=== PATIENT | female | born 1960 | race Two or more races ===

== ENCOUNTER 2017-03-08 11:40 | Emergency (ER) | payer MEDICAID ==
[~2017-03-08] VITALS: Ht 157.5 cm; Wt 90.3 kg
[~2017-03-08 11:40] MED LIST: CANA100T OR; GLIP-116 PO; METO25TA62 PO; OMEP20CA5 OR
[2017-03-08 11:58] VITALS: BP 169/80
[2017-03-08] MEDS ORDERED: KETOROLAC TROMETH 60MG/2ML VIAL IM ONE (13:00)
[2017-03-08] MEDS ORDERED: cefTRIAXone SOD 1,000 MG VL IM ONE (13:00)
== END 2017-03-08 13:27 | disposition home or self-care (01) ==
LOC: ER 11:41
DX: N39.0 Urinary tract infection, site not specified (principal); N12 Tubulo-interstitial nephritis, not specified as acute or chronic; E11.9 Type 2 diabetes mellitus without complications; I10 Essential (primary) hypertension; Z91.018 Allergy to other foods
CPT/HCPCS: 81002; 96372; 99284; J0696; J1885

== ENCOUNTER 2018-01-21 15:05 | Emergency (ER) | payer MEDICAID ==
[~2018-01-21] VITALS: Ht 157.5 cm; Wt 86.2 kg
[~2018-01-21 15:05] MED LIST changes: -OMEP20CA5 OR; +OMEP20CA74 OR
[2018-01-21 15:59] LABS: Basophils # (auto) 0 uL; Basophils % (auto) 0.4 % (0.0-2.0); Eosinophils # (auto) 0.2 uL; Eosinophils % (auto) 2.2 % (0.0-7.0); Hematocrit 47.2 % (36.0-46.0); Hemoglobin 16.6 g/dL (12.2-16.2); Lymphocytes # (auto) 1.1 uL; Lymphocytes % (auto) 15.1 % (10.0-50.0); Mean Corpuscular Hemoglobin 31.8 pg (28.0-32.0); Mean Corpuscular Hgb Conc. 35.1 g/dL (32.0-36.0); Mean Corpuscular Volume 90.6 fL (80.0-100.0); Monocytes # (auto) 0.4 uL; Monocytes % (auto) 5.1 % (0.0-12.0); Neutrophils # (auto) 5.7 uL; Neutrophils % (auto) 77.2 % (37.0-80.0); Nucleated Red Blood Cells % 0.2 %; Red Blood Cells 5.21 10^6/uL (4.0-5.20); Red Cell Distribution Width 13.6 % (11.8-14.3); White Blood Cell 7.4 10^3/uL (4.4-10.8)
[2018-01-21 16:01] LABS: INR 1.1 (0.9-1.15)
[2018-01-21 16:06] LABS: Alanine Aminotransferase 56 U/L (13-56); Albumin 3.8 g/dL (3.4-5.0); Alkaline Phosphatase 92 U/L (45-117); Anion Gap 8 (5-15); Aspartate Aminotransferase 43 U/L (15-37); Bilirubin, Total 0.6 mg/dL (0.2-1.0); Blood Urea Nitrogen 18 mg/dL (7-18); Calcium 9.1 mg/dL (8.5-10.1); Carbon Dioxide 32 mmol/L (21-32); Chloride 97 mmol/L (98-107); GFR African American 102 mL/min; GFR Non-African American 85 mL/min; Glucose 87 mg/dL (74-106); Magnesium 2.5 mg/dL (1.6-2.6); Potassium 3.4 mmol/L (3.5-5.1); Sodium 137 mmol/L (136-145); Total Protein 9.4 g/dL (6.4-8.2)
[2018-01-21 16:16] LABS: Platelet Count (auto) 139 10^3/uL (140-450)
[2018-01-21] MEDS ORDERED: PANTOPRAZOLE 40 MG/10 ML VIAL IV ONE (19:15)
[2018-01-21] MEDS ORDERED: ONDANSETRON HCL 4 MG/2 ML VIAL IV ONE (20:15)
[2018-01-21] MEDS ORDERED: MORPHINE SULFATE 4 MG/ML SYR/VIAL IV ONE (20:15)
[2018-01-21 20:32] LABS: Urine Bacteria NONE SEEN /hpf (None Seen); Urine Blood Negative /uL (Negative); Urine WBC 4 /hpf (0 - 5)
[2018-01-21 20:59] VITALS: BP 127/80
== END 2018-01-21 21:01 | disposition home or self-care (01) ==
LOC: ER 15:05 → EDBD 15:05 → EDUNIT# 15:05 → ER 21:01
DX: R07.89 Other chest pain (principal); I10 Essential (primary) hypertension; E11.9 Type 2 diabetes mellitus without complications; E78.5 Hyperlipidemia, unspecified; Z79.84 Long term (current) use of oral hypoglycemic drugs; Z86.73 Personal history of transient ischemic attack (TIA), and cerebral infarction without residual deficits; Z98.51 Tubal ligation status
CPT/HCPCS: 36415; 71046; 80053; 81001; 83735; 84484; 85025; 85379; 85610; 85730; 94761; 96374; 96375; 99285; C9113; J2270; J2405; 93005

== ENCOUNTER 2019-08-27 16:36 | Emergency (ER) | payer MEDICAID ==
[~2019-08-27] VITALS: Ht 157.5 cm; Wt 88.5 kg
[~2019-08-27 16:36] MED LIST changes: -GLIP-116 PO; +GLIP10TA9 PO
[2019-08-27 17:28] LABS: Basophils # (auto) 0.1 uL; Eosinophils # (auto) 0.1 uL; Eosinophils % (auto) 1.1 % (0.0-7.0); Hematocrit 44.9 % (36.0-46.0); Hemoglobin 15.7 g/dL (12.2-16.2); Lymphocytes # (auto) 1.2 uL; Lymphocytes % (auto) 20.7 % (10.0-50.0); Mean Corpuscular Hemoglobin 30.6 pg (28.0-32.0); Mean Corpuscular Hgb Conc. 34.9 g/dL (32.0-36.0); Mean Corpuscular Volume 87.5 fL (80.0-100.0); Monocytes # (auto) 0.3 uL; Monocytes % (auto) 4.8 % (0.0-12.0); Neutrophils # (auto) 4.2 uL; Neutrophils % (auto) 72.4 % (37.0-80.0); Nucleated Red Blood Cells % 0.1 %; Platelet Count (auto) 140 10^3/uL (140-450); Red Blood Cells 5.13 10^6/uL (4.0-5.20); Red Cell Distribution Width 13.9 % (11.8-14.3); White Blood Cell 5.8 10^3/uL (4.4-10.8)
[2019-08-27 17:38] LABS: Albumin 3.6 g/dL (3.4-5.0); Anion Gap 7 (5-15); BUN/Creatinine Ratio 22.4; Blood Urea Nitrogen 17 mg/dL (7-18); Carbon Dioxide 30 mmol/L (21-32); Chloride 102 mmol/L (98-107); GFR African American 100 mL/min; GFR Non-African American 83 mL/min; Glucose 96 mg/dL (74-106); Potassium 4.4 mmol/L (3.5-5.1); Sodium 139 mmol/L (136-145)
[2019-08-27 17:43] LABS: Alanine Aminotransferase 59 U/L (13-56); Alkaline Phosphatase 98 U/L (45-117); Aspartate Aminotransferase 52 U/L (15-37); Bilirubin, Total 0.9 mg/dL (0.2-1.0); Total Protein 9.2 g/dL (6.4-8.2)
[2019-08-27 20:31] LABS: INR 1.02 (0.9-1.15); Partial Thromboplastin Time 27.9 sec (23.64-32.05)
[2019-08-27] MEDS ORDERED: TIMO0.5S32 EACHEYE (21:37)
[2019-08-27] MEDS ORDERED: IOHEXOL 300 MG/ML 100ML BOTTLE IJ ONE (21:37)
[2019-08-27] MEDS ORDERED: ERTU15TA PO (21:37)
[2019-08-27] MEDS ORDERED: TRAM50TA2 PO (21:37)
[2019-08-27] MEDS ORDERED: LIRA18IN2 INJ (21:37)
[2019-08-27] MEDS ORDERED: LATA0.0015 EACHEYE (21:37)
[2019-08-27] MEDS ORDERED: TRIATAB3 PO (21:37)
[2019-08-27] MEDS ORDERED: PANT40T PO (21:37)
[2019-08-27] MEDS ORDERED: ONDANSETRON HCL 4 MG/2 ML VIAL IV ONE (21:45)
[2019-08-27] MEDS ORDERED: MORPHINE SULFATE 4 MG/ML SYR/VIAL IV ONE (22:30)
[2019-08-27 23:59] VITALS: BP 110/50
== END 2019-08-28 01:14 | disposition home or self-care (01) ==
LOC: ER 16:36
DX: K74.60 Unspecified cirrhosis of liver (principal); E11.9 Type 2 diabetes mellitus without complications; E78.00 Pure hypercholesterolemia, unspecified; I10 Essential (primary) hypertension; Z86.73 Personal history of transient ischemic attack (TIA), and cerebral infarction without residual deficits
CPT/HCPCS: 36415; 70450; 74177; 80053; 80320; 82140; 84484; 85025; 85610; 85730; 93005; 96374; 96375; 99284; J2270; J2405; Q9967

== ENCOUNTER 2021-01-20 18:27 | Inpatient (IN) | payer MEDICAID ==
[~2021-01-20] VITALS: Ht 157.5 cm; Wt 87.5 kg
[~2021-01-20 18:27] MED LIST changes: +ASPI-394 PO; +ATOR80TA PO; -CANA100T OR; -GLIP10TA9 PO; +INSLANTI SC; +LACT10SO3 PO; +LATA0.0019 EACHEYE; +LISI2.5T47 PO; +METO25TA5 PO; -METO25TA62 PO; -OMEP20CA74 OR; +PANT40T PO; +TIMO0.5S32 EACHEYE; +TRAM50TA2 PO; +TRIATAB3 PO
[2021-01-20] MEDS ORDERED: methylPREDNISolone SOD SUCC 125 MG/2 ML VL IV ONE (19:00)
[2021-01-20 19:30] LABS: Basophils # (auto) 0 10 ^3/uL (0-0.2); Basophils % (auto) 0.2 % (0.0-2.0); Eosinophils # (auto) 0 10 ^3/uL (0-0.8); Hemoglobin 15.3 g/dL (12.2-16.2); Lymphocytes # (auto) 0.5 10 ^3/uL (0.4-5.4); Lymphocytes % (auto) 6.6 % (10.0-50.0); Mean Corpuscular Hemoglobin 31.7 pg (28.0-32.0); Mean Corpuscular Hgb Conc. 35.6 g/dL (32.0-36.0); Mean Corpuscular Volume 88.9 fL (80.0-100.0); Monocytes # (auto) 0.7 10 ^3/uL (0-1.3); Neutrophils # (auto) 6.8 10 ^3/uL (1.6-8.6); Neutrophils % (auto) 84.2 % (37.0-80.0); Platelet Count (auto) 110 10^3/uL (140-450); Red Blood Cells 4.84 10^6/uL (4.0-5.20); Red Cell Distribution Width 13.5 % (11.8-14.3)
[2021-01-20 19:44] LABS: Albumin 3.3 g/dL (3.4-5.0); Calcium 8.9 mg/dL (8.5-10.1); Magnesium 2.6 mg/dL (1.6-2.6); Potassium 3.4 mmol/L (3.5-5.1)
[2021-01-20] MEDS ORDERED: ACETAMINOPHEN 325 MG TAB PO ONE (19:45)
[2021-01-20 19:52] LABS: BUN/Creatinine Ratio 15.5; Bilirubin, Total 1.7 mg/dL (0.2-1.0); CRP High Sensitivity 9.5 mg/dL (< 0.3); Total Protein 8.9 g/dL (6.4-8.2)
[2021-01-20 21:14] LABS: Urine Bacteria NONE SEEN /hpf (None Seen); Urine Blood 1+ /uL (Negative); Urine Budding Yeast MODERATE /hpf (None Seen); Urine Mucus FEW (None Seen); Urine Specific Gravity 1.025 (1.001-1.035); Urine WBC 239 /hpf (0 - 5)
[2021-01-20] MEDS ORDERED: SODIUM CHLORIDE 0.9% 1,000 ML IV ONE (21:45)
[2021-01-20] MEDS ORDERED: ONDANSETRON HCL 4 MG/2 ML VIAL IV PRN (21:45)
[2021-01-21] MEDS ORDERED: ONDANSETRON HCL 4 MG/2 ML VIAL IV PRN (05:45)
[2021-01-21] MEDS ORDERED: MORPHINE SULF INJ 2 MG/ML SYRINGE 1ML IV PRN ×2 (05:45)
[2021-01-21] MEDS ORDERED: NITROGLYCERIN 0.4 MG SL TAB SL PRN (05:45)
[2021-01-21] MEDS ORDERED: HYDROcodone-ACET 5/325MG TAB PO PRN (05:45)
[2021-01-21] MEDS ORDERED: AZITHROMYCIN 500MG/ 250ML 250 ML IV SCH (06:00)
[2021-01-21] MEDS: ALBUTEROL SULF 2.5 MG/0.5ML(0.5%) NEB SOLN NEB SCH ×4 (08:45→18:59)
[2021-01-21] MEDS: IPRATROPIUM BROM 0.5 MG/2.5ML INH SOL NEB SCH ×4 (08:45→18:59)
[2021-01-21 09:00] VITALS: BP 93/52
[2021-01-21] MEDS ORDERED: DexAMETHasone SOD PHOS 10MG/1ML VIAL INJ IV SCH (10:00)
[2021-01-21] MEDS: ENOXAPARIN SOD 40 MG/0.4 ML SYRINGE SC SCH (10:00)
[2021-01-21] MEDS: levoFLOXacin 500MG 100 ML IV SCH (10:17)
[2021-01-21] MEDS ORDERED: DEXTROSE (50%) 50ML SYRG IV PRN (10:45)
[2021-01-21] MEDS: InsuLIN REG 1unit/0.01ml Soln (100units/ml) SC SCH ×3 (11:55→22:36)
[2021-01-21] MEDS: ACCU-CHEK COMFORT CURVE STRIP VI SCH ×3 (11:55→22:00)
[2021-01-21] MEDS ORDERED: traMADol HCL 50 MG TAB PO ONE (13:45)
[2021-01-21] MEDS ORDERED: traMADol HCL 50 MG TAB PO PRN (14:00)
[2021-01-21] MEDS ORDERED: IOHEXOL 350 MG/ML 100ML IJ ONE (15:30)
[2021-01-21 16:49] LABS: INR 1.31 (0.9-1.15); Partial Thromboplastin Time 28.1 sec (23.0-31.2)
[2021-01-21] MEDS: SUCRALFATE 1 GM/10 ML ORAL SUSP PO SCH ×2 (17:00→22:37)
[2021-01-21] MEDS ORDERED: SUCRALFATE 1 GM/10 ML ORAL SUSP ONE (17:57)
[2021-01-21] MEDS: ACETAMINOPHEN 325 MG TAB PO PRN (18:30)
[2021-01-21 20:18] VITALS: BP 101/58
[2021-01-21] MEDS: PANTOPRAZOLE 40 MG TAB PO SCH (22:37)
[2021-01-21] MEDS: METOCLOPRAMIDE HCL 10 MG TAB PO SCH (22:38)
[2021-01-22] MEDS: SUCRALFATE 1 GM/10 ML ORAL SUSP PO SCH ×4 (06:57→22:22)
[2021-01-22] MEDS: ACCU-CHEK COMFORT CURVE STRIP VI SCH ×4 (06:57→22:22)
[2021-01-22] MEDS: InsuLIN REG 1unit/0.01ml Soln (100units/ml) SC SCH ×4 (06:57→22:38)
[2021-01-22] MEDS: IPRATROPIUM BROM 0.5 MG/2.5ML INH SOL NEB SCH ×3 (06:58→19:31)
[2021-01-22] MEDS: ALBUTEROL SULF 2.5 MG/0.5ML(0.5%) NEB SOLN NEB SCH ×3 (06:58→19:31)
[2021-01-22 08:00] VITALS: BP 90/50
[2021-01-22 08:45] LABS: Basophils # (auto) 0 10 ^3/uL (0-0.2); Basophils % (auto) 0.1 % (0.0-2.0); Eosinophils # (auto) 0 10 ^3/uL (0-0.8); Hematocrit 43.4 % (36.0-46.0); Hemoglobin 14.9 g/dL (12.2-16.2); Lymphocytes # (auto) 0.7 10 ^3/uL (0.4-5.4); Lymphocytes % (auto) 6.2 % (10.0-50.0); Mean Corpuscular Hemoglobin 30.8 pg (28.0-32.0); Mean Corpuscular Hgb Conc. 34.4 g/dL (32.0-36.0); Mean Corpuscular Volume 89.7 fL (80.0-100.0); Monocytes # (auto) 0.6 10 ^3/uL (0-1.3); Monocytes % (auto) 5.5 % (0.0-12.0); Neutrophils # (auto) 9.6 10 ^3/uL (1.6-8.6); Neutrophils % (auto) 88.2 % (37.0-80.0); Platelet Count (auto) 121 10^3/uL (140-450); Red Blood Cells 4.84 10^6/uL (4.0-5.20); Red Cell Distribution Width 13.7 % (11.8-14.3); White Blood Cell 10.9 10^3/uL (4.4-10.8)
[2021-01-22 09:04] LABS: Calcium 8.8 mg/dL (8.5-10.1); Potassium 3.8 mmol/L (3.5-5.1)
[2021-01-22 09:06] LABS: BUN/Creatinine Ratio 29.5
[2021-01-22] MEDS ORDERED: MIDAZOLAM HCL 5 MG/ML-1ML VIAL ONE (09:23)
[2021-01-22] MEDS ORDERED: fentaNYL CITRATE 100 MCG/2 ML VL ONE (09:23)
[2021-01-22] MEDS ORDERED: LIDOCAINE VISCOUS 2% 15ML UD ONE (09:23)
[2021-01-22] MEDS ORDERED: diphenhdrAMINE HCL 50 MG/1 ML VL ONE (09:23)
[2021-01-22] MEDS: levoFLOXacin 500MG 100 ML IV SCH (09:27)
[2021-01-22] MEDS: ENOXAPARIN SOD 40 MG/0.4 ML SYRINGE SC SCH (09:27)
[2021-01-22] MEDS: METOCLOPRAMIDE HCL 10 MG TAB PO SCH ×2 (09:27→22:21)
[2021-01-22] MEDS: PANTOPRAZOLE 40 MG TAB PO SCH ×2 (09:27→22:21)
[2021-01-22] MEDS ORDERED: LIDOCAINE VISCOUS 2% 15ML UD MT ONE (09:40)
[2021-01-22] MEDS ORDERED: fentaNYL CITRATE 100 MCG/2 ML VL IV ONE (09:41)
[2021-01-22] MEDS ORDERED: MIDAZOLAM HCL 5 MG/ML-1ML VIAL IV ONE (09:41)
[2021-01-22] MEDS ORDERED: PANTOPRAZOLE 40 MG TAB PO SCH (10:00)
[2021-01-22 12:00] VITALS: BP 106/56
[2021-01-22 15:54] LABS: Basophils # (auto) 0 10 ^3/uL (0-0.2); Basophils % (auto) 0.1 % (0.0-2.0); Eosinophils # (auto) 0 10 ^3/uL (0-0.8); Eosinophils % (auto) 0.1 % (0.0-7.0); Hematocrit 41.2 % (36.0-46.0); Hemoglobin 14.2 g/dL (12.2-16.2); Lymphocytes # (auto) 0.5 10 ^3/uL (0.4-5.4); Lymphocytes % (auto) 7.1 % (10.0-50.0); Mean Corpuscular Hemoglobin 31.1 pg (28.0-32.0); Mean Corpuscular Hgb Conc. 34.5 g/dL (32.0-36.0); Mean Corpuscular Volume 90.2 fL (80.0-100.0); Monocytes # (auto) 0.7 10 ^3/uL (0-1.3); Monocytes % (auto) 8.7 % (0.0-12.0); Neutrophils # (auto) 6.5 10 ^3/uL (1.6-8.6); Nucleated Red Blood Cells % 0.1 %; Platelet Count (auto) 95 10^3/uL (140-450); Red Blood Cells 4.57 10^6/uL (4.0-5.20); Red Cell Distribution Width 13.4 % (11.8-14.3); White Blood Cell 7.7 10^3/uL (4.4-10.8)
[2021-01-22 16:00] VITALS: BP 118/59
[2021-01-22] MEDS: ACETAMINOPHEN 325 MG TAB PO PRN (16:02)
[2021-01-22] MEDS: PIPERACILLIN-TAZOB 3.375GM 100 ML IV SCH (17:33)
[2021-01-22 22:00] VITALS: BP 93/58
[2021-01-23] MEDS: PIPERACILLIN-TAZOB 3.375GM 100 ML IV SCH ×4 (00:30→18:00)
[2021-01-23] MEDS: ACETAMINOPHEN 325 MG TAB PO PRN (00:45)
[2021-01-23 05:00] VITALS: BP 102/50
[2021-01-23] MEDS: SUCRALFATE 1 GM/10 ML ORAL SUSP PO SCH ×3 (05:57→18:09)
[2021-01-23] MEDS: ACCU-CHEK COMFORT CURVE STRIP VI SCH ×3 (05:58→17:28)
[2021-01-23] MEDS: InsuLIN REG 1unit/0.01ml Soln (100units/ml) SC SCH ×3 (06:05→17:00)
[2021-01-23] MEDS: IPRATROPIUM BROM 0.5 MG/2.5ML INH SOL NEB SCH ×2 (06:08→11:51)
[2021-01-23] MEDS: ALBUTEROL SULF 2.5 MG/0.5ML(0.5%) NEB SOLN NEB SCH ×2 (06:08→11:51)
[2021-01-23 07:27] LABS: Basophils # (auto) 0 10 ^3/uL (0-0.2); Basophils % (auto) 0.3 % (0.0-2.0); Eosinophils # (auto) 0 10 ^3/uL (0-0.8); Eosinophils % (auto) 0.8 % (0.0-7.0); Hemoglobin 13.3 g/dL (12.2-16.2); Lymphocytes # (auto) 0.8 10 ^3/uL (0.4-5.4); Lymphocytes % (auto) 17.9 % (10.0-50.0); Mean Corpuscular Hemoglobin 31.4 pg (28.0-32.0); Mean Corpuscular Volume 89.6 fL (80.0-100.0); Monocytes # (auto) 0.5 10 ^3/uL (0-1.3); Monocytes % (auto) 11.7 % (0.0-12.0); Neutrophils # (auto) 3.2 10 ^3/uL (1.6-8.6); Neutrophils % (auto) 69.3 % (37.0-80.0); Platelet Count (auto) 90 10^3/uL (140-450); Red Blood Cells 4.24 10^6/uL (4.0-5.20); Red Cell Distribution Width 13.4 % (11.8-14.3); White Blood Cell 4.7 10^3/uL (4.4-10.8)
[2021-01-23 07:45] LABS: Calcium 7.9 mg/dL (8.5-10.1); Potassium 3.7 mmol/L (3.5-5.1)
[2021-01-23 09:00] VITALS: BP 105/62
[2021-01-23] MEDS: levoFLOXacin 500MG 100 ML IV SCH (09:57)
[2021-01-23] MEDS: PANTOPRAZOLE 40 MG TAB PO SCH (09:57)
[2021-01-23] MEDS: METOCLOPRAMIDE HCL 10 MG TAB PO SCH (09:57)
[2021-01-23] MEDS: ENOXAPARIN SOD 40 MG/0.4 ML SYRINGE SC SCH (09:58)
[2021-01-23 13:00] VITALS: BP 107/79
[2021-01-23] MEDS ORDERED: SUCR1SUS10 PO (15:55)
[2021-01-23] MEDS ORDERED: PANT40T PO (15:55)
[2021-01-23] MEDS ORDERED: CIPR500T4 PO (15:55)
[2021-01-23] MEDS ORDERED: LEVO500T31 PO (15:57)
[2021-01-23 18:06] VITALS: BP 120/71
== END 2021-01-23 18:40 | disposition home health service (06) | DRG 133 ==
LOC: ER 18:27 → EDBD 18:27 → TELE 18:28 → TELE-WESTW 01-21 20:09
PROVIDERS: ADMIT Internal Medicine; ATTEND Internal Medicine
PROC: 0DJ08ZZ Inspection of Upper Intestinal Tract, Via Natural or Artificial Opening Endoscopic (ICD-10-PCS; principal; 2021-01-22 09:36)
DX: J96.01 Acute respiratory failure with hypoxia (principal); N39.0 Urinary tract infection, site not specified; J18.9 Pneumonia, unspecified organism; K29.71 Gastritis, unspecified, with bleeding; Z20.822 Contact with and (suspected) exposure to COVID-19; K29.81 Duodenitis with bleeding; D25.9 Leiomyoma of uterus, unspecified; E11.9 Type 2 diabetes mellitus without complications; E78.5 Hyperlipidemia, unspecified; G47.33 Obstructive sleep apnea (adult) (pediatric); I10 Essential (primary) hypertension; J98.11 Atelectasis; K21.9 Gastro-esophageal reflux disease without esophagitis; K31.7 Polyp of stomach and duodenum; K44.9 Diaphragmatic hernia without obstruction or gangrene; K74.60 Unspecified cirrhosis of liver; K76.0 Fatty (change of) liver, not elsewhere classified; B96.20 Unspecified Escherichia coli [E. coli] as the cause of diseases classified elsewhere; Z79.4 Long term (current) use of insulin; Z79.82 Long term (current) use of aspirin; Z79.899 Other long term (current) drug therapy; Z82.3 Family history of stroke; Z83.3 Family history of diabetes mellitus; Z86.73 Personal history of transient ischemic attack (TIA), and cerebral infarction without residual deficits; Z91.018 Allergy to other foods; Z98.891 History of uterine scar from previous surgery; Z98.51 Tubal ligation status; R78.81 Bacteremia
CPT/HCPCS: 36415; 43235; 71045; 71275; 74176; 80048; 80053; 81001; 82728; 82962; 83605; 83615; 83735; 84484; 85025; 85610; 85730; 86141; 87040; 87077; 87081; 87086; 87186; 87426; 93005; 94640; 96361; 96365; 96366; 96367; 96375; G0378; J1815; J1956; J2250; J2405; J2543

== ENCOUNTER 2023-01-31 08:50 | Emergency (ER) | payer MEDICAID ==
[~2023-01-31] VITALS: Ht 157.5 cm; Wt 80.0 kg
[~2023-01-31 08:50] MED LIST changes: +LEVO500T31 PO; +SUCR1SUS10 PO
[2023-01-31 09:53] LABS: Basophils # (auto) 0 10 ^3/uL (0-0.2); Basophils % (auto) 0.5 % (0.0-2.0); Eosinophils # (auto) 0.1 10 ^3/uL (0-0.8); Eosinophils % (auto) 1.6 % (0.0-7.0); Hematocrit 46.7 % (36.0-46.0); Hemoglobin 16.1 g/dL (12.2-16.2); Lymphocytes # (auto) 0.5 10 ^3/uL (0.4-5.4); Lymphocytes % (auto) 10.6 % (10.0-50.0); Mean Corpuscular Hemoglobin 30.9 pg (28.0-32.0); Mean Corpuscular Hgb Conc. 34.4 g/dL (32.0-36.0); Mean Corpuscular Volume 89.9 fL (80.0-100.0); Monocytes # (auto) 0.5 10 ^3/uL (0-1.3); Neutrophils # (auto) 3.8 10 ^3/uL (1.6-8.6); Neutrophils % (auto) 76.3 % (37.0-80.0); Nucleated Red Blood Cells % 0.3 %
[2023-01-31 10:43] LABS: BUN/Creatinine Ratio 21.4; Bilirubin, Total 0.6 mg/dL (0.2-1.0); Calcium 9.4 mg/dL (8.5-10.1); Magnesium 2.6 mg/dL (1.6-2.6); Potassium 3.7 mmol/L (3.5-5.1); Total Protein 8.8 g/dL (6.4-8.2)
[2023-01-31 10:48] LABS: Urine Bacteria NONE SEEN /hpf (None Seen); Urine Blood Negative /uL (Negative); Urine Hyaline Cast FEW /lpf (0 - 2); Urine WBC 1 /hpf (0 - 5)
[2023-01-31 13:59] VITALS: BP 114/72
== END 2023-01-31 14:01 | disposition home or self-care (01) ==
LOC: ER 08:50
DX: R07.89 Other chest pain (principal); B34.9 Viral infection, unspecified; I10 Essential (primary) hypertension; E11.9 Type 2 diabetes mellitus without complications; E78.5 Hyperlipidemia, unspecified; Z86.73 Personal history of transient ischemic attack (TIA), and cerebral infarction without residual deficits; Z79.82 Long term (current) use of aspirin; Z79.4 Long term (current) use of insulin; Z79.2 Long term (current) use of antibiotics; Z79.899 Other long term (current) drug therapy; Z91.018 Allergy to other foods; Z20.822 Contact with and (suspected) exposure to COVID-19
CPT/HCPCS: 36415; 71045; 80053; 81001; 83735; 84484; 85025; 87426; 93005

== ENCOUNTER 2023-02-09 16:09 | Emergency (ER) | payer MEDICAID ==
[~2023-02-09] VITALS: Ht 157.5 cm; Wt 78.4 kg
[2023-02-09 16:29] VITALS: BP 134/75
[2023-02-09] MEDS ORDERED: MELO7.5T9 PO (16:57)
== END 2023-02-09 17:07 | disposition home or self-care (01) ==
LOC: ER 16:09
DX: S60.221A Contusion of right hand, initial encounter (principal); M19.041 Primary osteoarthritis, right hand; E11.9 Type 2 diabetes mellitus without complications; E78.5 Hyperlipidemia, unspecified; I10 Essential (primary) hypertension; Z79.899 Other long term (current) drug therapy; Z88.6 Allergy status to analgesic agent; Z86.73 Personal history of transient ischemic attack (TIA), and cerebral infarction without residual deficits; X58.XXXA Exposure to other specified factors, initial encounter; Y93.89 Activity, other specified; Y92.89 Other specified places as the place of occurrence of the external cause; Y99.8 Other external cause status
CPT/HCPCS: 73130; 82962

== ENCOUNTER 2024-06-21 06:51 | Emergency (ER) | payer MEDICAID ==
[~2024-06-21] VITALS: Ht 157.5 cm; Wt 75.2 kg
[~2024-06-21 06:51] MED LIST changes: -LATA0.0019 EACHEYE; +LATA0.008 EACHEYE; +MELO7.5T9 PO; -SUCR1SUS10 PO; +SUCR1SUS26 PO
[2024-06-21] MEDS: HYDROcodone-ACET 5/325MG TAB PO ONE (07:51)
[2024-06-21 08:02] VITALS: BP 127/73; PULSE 65; RESP 16; TEMP 98.3; O2SAT 97
[2024-06-21] MEDS ORDERED: NAPR-746 PO (08:04)
== END 2024-06-21 08:08 | disposition home or self-care (01) ==
LOC: ER 06:51
DX: M17.11 Unilateral primary osteoarthritis, right knee (principal); E11.9 Type 2 diabetes mellitus without complications; E78.5 Hyperlipidemia, unspecified; I10 Essential (primary) hypertension; Z98.51 Tubal ligation status; Z86.73 Personal history of transient ischemic attack (TIA), and cerebral infarction without residual deficits
CPT/HCPCS: 73562; 93971